=== PATIENT | female | born 1960 | race Caucasian/White ===

== ENCOUNTER 2017-05-01 10:21 | Emergency (ER) | payer MEDICAID ==
[~2017-05-01] VITALS: Ht 162.6 cm; Wt 60.0 kg
[2017-05-01] MEDS ORDERED: PROP80CA2 PO (10:26)
[2017-05-01] MEDS ORDERED: SODIUM CHLORIDE 0.9% 500 ML IV ONE (10:52)
[2017-05-01] MEDS ORDERED: ASPIRIN 81MG TABLET PO ONE (11:00)
[2017-05-01 11:08] LABS: BASOPHILS % 0.5 % (0.0-2.0); HEMATOCRIT. 38.8 % (36.0-48.0); HEMOGLOBIN. 13.4 g/dL (12.0-16.0); LYMPHOCYTES % 20.9 % (20.0-50.0); MEAN CORPUSCULAR HEMOGLOBIN 31.8 pg (28.0-32.0); MEAN CORPUSCULAR VOLUME 92.4 fL (81.0-99.0); MEAN PLATELET VOLUME 8.4 fl (7.4-10.4); MONOCYTES % 5.5 % (2.0-8.0); NEUTROPHILS % 71.1 % (40.0-76.0); PLATELET 295 x1000/uL (130-400); RED CELL DISTRIBUTION WIDTH 12.7 % (11.6-14.6)
[2017-05-01 11:19] LABS: CHLORIDE 104 mEq/L (98-107)
[2017-05-01 11:24] LABS: D-DIMER 0.34 mg/L FEU (<0.50); INR 1.1; PARTIAL THROMBOPLASTIN TIME 26.1 sec (23.4-31.0); PROTHROMBIN TIME 11.3 sec (9.4-11.6)
[2017-05-01 11:25] LABS: TROPONIN I < 0.02 ng/mL (0.00-0.04)
[2017-05-01 14:30] VITALS: BP 120/80
== END 2017-05-01 14:30 | disposition home or self-care (01) ==
LOC: ER 10:32
DX: R06.02 Shortness of breath (principal); F41.1 Generalized anxiety disorder; R11.0 Nausea; R00.2 Palpitations; Z79.82 Long term (current) use of aspirin; Z88.0 Allergy status to penicillin
CPT/HCPCS: 36415; 71045; 80053; 83690; 83880; 84443; 84484; 85025; 85379; 85610; 85730; 93005; 99285; J7040